=== PATIENT | male | born 1965 | race Caucasian/White ===

== ENCOUNTER 2019-02-11 03:05 | Observation (INO) | payer SELFPAY ==
[2019-02-11] VITALS (7 sets, daily range): BP systolic 125–178; BP diastolic 77–110; PULSE 57–77; RESP 18–20; Ht 175.3 cm; Wt 80.2 kg
[~2019-02-11] VITALS: Ht 175.3 cm; Wt 80.2 kg
[2019-02-11] MEDS ORDERED: ASPIRIN 325 MG TAB PO STA (03:28)
[2019-02-11] MEDS ORDERED: NITROGLYCERIN (SL) 0.4 MG TAB SL PRN ×2 (03:30→07:00)
--- NOTE | 2019-02-11 04:40 | ERD ---
ER Documentation Chief Complaint Chief Complaint precordial pain less than an hr ago HPI This is a 53-year-old male with a previous history of IV drug abuse and hepatitis C presents to the emergency room for evaluation of chest pain. The patient states that he was working on his motorcycle in the garage at approximately 1 AM and he developed some substernal chest pain which she describes as a pressure-like sensation. The patient states that he was sweating and became nauseous with no vomiting. He states the pain has improved however he came to the ER for evaluation. He currently denies any shortness of breath, headache, abdominal pain, diarrhea ROS All systems reviewed and are negative except as per history of present illness. Allergies Allergies: Coded Allergies: No Known Allergy (Unverified , 02/11/19) PMhx/Soc Medical and Surgical Hx: pt denies Surgical Hx Hx Miscellaneous Medical Probl: Yes (Hep C) Hx Substance Use: Yes (marijuana- denies other) Hx Tobacco Use: Yes Smoking Status: Current every day smoker Physical Exam Vitals Vital Signs Date Temp Pulse Resp B/P (MAP) Pulse Ox O2 O2 Flow FiO2 Time Delivery Rate 02/11/19 78 20 165/110 96 Room Air 03:25 (128) 02/11/19 97.2 93 18 161/94 95 03:07 (116) Physical Exam Const: No acute distress Head: Atraumatic Eyes: Normal Conjunctiva ENT: Normal External Ears, Nose and Mouth. Neck: Full range of motion. No meningismus. Resp: Clear to auscultation bilaterally Cardio: Regular rate and rhythm, no murmurs Abd: Soft, non tender, non distended. Normal bowel sounds Skin: No petechiae or rashes Back: No midline or flank tenderness Ext: No cyanosis, or edema Neur: Awake and alert Psych: Normal Mood and Affect Result Diagram: 02/11/19 0330 02/11/19 0330 Results 24 hrs Laboratory Tests Test 02/11/19 03:30 White Blood Count 8.4 10^3/ul Red Blood Count 4.33 10^6/ul Hemoglobin 12.9 g/dl Hematocrit 38.0 % Mean Corpuscular Volume 87.8 fl Mean Corpuscular Hemoglobin 29.8 pg Mean Corpuscular Hemoglobin Concent 33.9 g/dl Red Cell Distribution Width 13.2 % Platelet Count 242 10^3/UL Mean Platelet Volume 9.2 fl Immature Granulocytes % 0.100 % Neutrophils % 71.8 % Lymphocytes % 19.8 % Monocytes % 5.8 % Eosinophils % 2.0 % Basophils % 0.5 % Nucleated Red Blood Cells % 0.0 /100WBC Immature Granulocytes # 0.010 10^3/ul Neutrophils # 6.0 10^3/ul Lymphocytes # 1.7 10^3/ul Monocytes # 0.5 10^3/ul Eosinophils # 0.2 10^3/ul Basophils # 0.0 10^3/ul Nucleated Red Blood Cells # 0.0 10^3/ul Sodium Level 139 mmol/L Potassium Level 3.9 mmol/L Chloride Level 102 mmol/L Carbon Dioxide Level 29 mmol/L Anion Gap 8 Blood Urea Nitrogen 16 mg/dl Creatinine 0.87 mg/dl Est Glomerular Filtrat Rate mL/min > 60 mL/min Glucose Level 112 mg/dl Calcium Level 9.1 mg/dl Troponin I < 0.012 ng/ml Current Medications Medications Dose Sig/Mariangel Start Time Status Last (Trade) Ordered Route PRN Stop Time Admin Dose Reason Admin Aspirin 325 mg ONCE STAT 02/11/19 DC 02/11/19 (Aspirin) PO 03:28 03:38 02/11/19 03:29 1 tab Q5M UP TO 3 02/11/19 02/11/19 Nitroglycerin DOSES PRN 03:30 03:39 SL .CHEST (Nitroglyceri PAIN n (Sl Tab) 0.4 Mg) Procedures/MDM EKG: Rate/Rhythm: [Normal Sinus Rhythm] QRS, ST, T-waves: [No changes consistent w/ acute ischemia] Impression: [No evidence of ischemia or arrhythmia] Chest X-ray 1V Interpreted by me: Soft Tissue: No acute abnormalities Bones: No acute abnormalities Mediastinum/Cardiac Silhouette/Lungs: [No acute abnormalities] This 53-year-old male presents the ER for evaluation of substernal chest pain which was nonexertional. He did describe being diaphoretic and nauseous. His EKG is nonischemic at this time and his first troponin is negative. The patient was given aspirin and nitro and does state that his pain has improved. The patient has never had a stress test and given his presenting symptoms and history the patient will benefit from surgery troponins for ACS. The patient will be placed on the telemetry floor in observation under panel physician Departure Diagnosis: Primary Impression: Chest pain Condition: SOUMYA Gambino DO Feb 11, 2019 04:40
[2019-02-11] MEDS ORDERED: ONDANSETRON 4 MG INJ IV PRN ×3 (05:00→11:00)
[2019-02-11] MEDS ORDERED: ACETAMINOPHEN 325 MG TAB PO PRN ×2 (05:00→07:00)
--- NOTE | 2019-02-11 06:48 | HP ---
Date/Time of Note Date/Time of Note DATE: 02/11/19 TIME: 06:43 Assessment/Plan VTE Prophylaxis Pharmacological prophylaxis: heparin Lines/Catheters IV Catheter Type (from Nrsg): Saline Lock Assessment/Plan Assessment/Plan 53-year-old male who is an ex-IV drug user, history of hep C who presents with pressure-like chest pain, sweating with associated nausea and shoulder pain that started while he was working on his motorcycle yesterday afternoon. Need to rule out ACS PLAN -Telemetry monitoring -EKG without ST-T wave abnormalities -Troponin negative x1. Serial troponin -Supplemental oxygen, aspirin, beta-delphine. As needed nitro -Check A1c, fasting lipid and TSH -2D echo -Cardiology consult -utox screen. pt diaphoretic and sleepy Result Diagram: 02/11/19 0330 02/11/19 0330 Results 24hrs Laboratory Tests Test 02/11/19 03:30 White Blood Count 8.4 Red Blood Count 4.33 L Hemoglobin 12.9 L Hematocrit 38.0 L Mean Corpuscular Volume 87.8 Mean Corpuscular Hemoglobin 29.8 Mean Corpuscular Hemoglobin Concent 33.9 Red Cell Distribution Width 13.2 Platelet Count 242 Mean Platelet Volume 9.2 Immature Granulocytes % 0.100 Neutrophils % 71.8 Lymphocytes % 19.8 Monocytes % 5.8 Eosinophils % 2.0 Basophils % 0.5 Nucleated Red Blood Cells % 0.0 Immature Granulocytes # 0.010 Neutrophils # 6.0 Lymphocytes # 1.7 Monocytes # 0.5 Eosinophils # 0.2 Basophils # 0.0 Nucleated Red Blood Cells # 0.0 Sodium Level 139 Potassium Level 3.9 Chloride Level 102 Carbon Dioxide Level 29 Anion Gap 8 Blood Urea Nitrogen 16 Creatinine 0.87 Est Glomerular Filtrat Rate mL/min > 60 Glucose Level 112 Calcium Level 9.1 Troponin I < 0.012 HPI/ROS Admit Date/Time Admit Date/Time Feb 11, 2019 at 04:37 Hx of Present Illness Patient is a 53-year-old male who is an ex-IV drug user, history of hep C who presented to ER complaining of chest pain sweating. Chest pain started yesterday afternoon while he was working on his motorcycle. It is mainly localized in the mid chest, described as pressure-like with associated nausea and pain on his shoulders. Reported minimal shortness of breath. Patient sleepy, but arousable. He is diaphoretic. I asked if he has been doing drugs recently, but denied When he presented to the ER, blood pressure was 161/94. First troponin is negative and EKG without ST-T wave abnormalities. Chest x-ray without acute findings. PMH/Family/Social Past Medical History Medical History: other (See HPI) Medications Current Medications Ondansetron HCl (Zofran Inj) 4 mg ER BRIDGE PRN IV NAUSEA/VOMITING; Start 02/11/19 at 05:00; Stop 02/12/19 at 04:59 Acetaminophen (Tylenol Tab) 650 mg ER BRIDGE PRN PO .MILD PAIN 1-3 OR TEMP; Start 02/11/19 at 05:00; Stop 02/12/19 at 04:59 IV Flush (NS 3 ml) 3 ml PER PROTOCOL IV ; Start 02/11/19 at 07:00 Ondansetron HCl (Zofran Inj) 4 mg Q6H PRN IV NAUSEA/VOMITING; Start 02/11/19 at 07:00 Aspirin (Aspirin) 81 mg DAILY PO ; Start 02/11/19 at 09:00 Nitroglycerin (Nitroglycerin (Sl Tab) 0.4 Mg) 1 tab Q5M PRN SL .CHEST PAIN; Start 02/11/19 at 07:00 Acetaminophen (Tylenol Tab) 650 mg Q6H PRN PO .PAIN 1-3 OR TEMP; Start 02/11/19 at 07:00 Heparin Sodium (Porcine) (Heparin (5000 Units/1ml)) 5,000 unit Q12 SC ; Start 02/11/19 at 09:00 Albuterol/ Ipratropium (Duoneb) 3 ml Q2H RESP THERAPY PRN HHN SHORTNESS OF BREATH; Start 02/11/19 at 07:00 Coded Allergies: No Known Allergy (Unverified , 02/11/19) Past Surgical History Past Surgical Hx: other (See HPI) Family History Significant Family History: no pertinent family hx Social History Alcohol Use: other Smoking Status: Current every day smoker Drug Use: other (Aches IV drug user) Exam/Review of Systems Vital Signs Vitals Vital Signs Date Temp Pulse Resp B/P (MAP) Pulse Ox O2 O2 Flow FiO2 Time Delivery Rate 02/11/19 171/91 06:07 (117) 02/11/19 97.6 73 20 92 Room Air 05:52 Exam Constitutional: alert, oriented, well developed Head: normocephalic, atraumatic Eyes: EOMI, PERRL Respiratory: clear to auscultation, normal air movement Cardiovascular: regular rate and rhythm, nl pulses Gastrointestinal: soft, non-tender Extremities: normal pulses MARTHA BADILLO MD Feb 11, 2019 06:48
[2019-02-11] MEDS: METOPROLOL 25 MG TAB PO SCH ×2 (06:54→20:43)
[2019-02-11] MEDS ORDERED: NACL 0.9% 3 ML SYG IV SCH (07:00)
[2019-02-11] MEDS ORDERED: ALBUTEROL/IPRATROPIUM (NEB) 3 ML AMP HHN PRN (07:00)
[2019-02-11] MEDS: ASPIRIN 81 MG TAB PO SCH (08:30)
[2019-02-11] MEDS: HEPARIN 5,000 UNIT/1 ML VIAL SC SCH ×2 (08:34→20:46)
[2019-02-11] MEDS: METOCLOPRAMIDE 10 MG INJ IV PRN ×2 (11:36→20:48)
[2019-02-11] MEDS: NICOTINE (21 MG/24 HR) PATCH TRANSDERM SCH (11:36)
--- NOTE | 2019-02-11 12:50 | PN ---
Date/Time of Note Date/Time of Note DATE: 02/11/19 TIME: 12:48 Assessment/Plan VTE Prophylaxis Pharmacological prophylaxis: heparin Lines/Catheters IV Catheter Type (from Nrsg): Saline Lock Assessment/Plan Hospital Course 1. Chest pain Patient with no significant risk factors, currently no evidence of ACS Trend troponins follow-up on echo 2. Intractable nausea and vomiting likely secondary to tobacco withdrawal Reglan and Zofran Nicotine patch 3. History of IV drug use and hepatitis C No acute issues Follow-up on toxicology screen Prophylaxis: Heparin DC planning: Patient still with nausea vomiting, trend troponins, anticipate DC home in 1 to 2 days Result Diagram: 02/11/19 0330 02/11/19 033 Results 24hrs Laboratory Tests Test 02/11/19 03:30 02/11/19 11:19 White Blood Count 8.4 Red Blood Count 4.33 L Hemoglobin 12.9 L Hematocrit 38.0 L Mean Corpuscular Volume 87.8 Mean Corpuscular Hemoglobin 29.8 Mean Corpuscular Hemoglobin Concent 33.9 Red Cell Distribution Width 13.2 Platelet Count 242 Mean Platelet Volume 9.2 Immature Granulocytes % 0.100 Neutrophils % 71.8 Lymphocytes % 19.8 Monocytes % 5.8 Eosinophils % 2.0 Basophils % 0.5 Nucleated Red Blood Cells % 0.0 Immature Granulocytes # 0.010 Neutrophils # 6.0 Lymphocytes # 1.7 Monocytes # 0.5 Eosinophils # 0.2 Basophils # 0.0 Nucleated Red Blood Cells # 0.0 Sodium Level 139 Potassium Level 3.9 Chloride Level 102 Carbon Dioxide Level 29 Anion Gap 8 Blood Urea Nitrogen 16 Creatinine 0.87 Est Glomerular Filtrat Rate mL/min > 60 Glucose Level 112 Calcium Level 9.1 Troponin I < 0.012 < 0.012 Creatine Kinase 201 H Creatine Kinase Index 1.0 Creatinine Kinase MB (Mass) 2.00 Subjective 24 Hr Interval Summary Gastrointestinal: nausea Exam/Review of Systems Exam Vitals Vital Signs Date Temp Pulse Resp B/P (MAP) Pulse Ox O2 O2 Flow FiO2 Time Delivery Rate 02/11/19 98.0 57 20 138/93 94 Room Air 10:58 (108) Constitutional: alert, oriented Respiratory: clear to auscultation Cardiovascular: regular rate and rhythm Gastrointestinal: soft; No distended Musculoskeletal: nl extremities to inspection Results Results 24hrs Laboratory Tests Test 02/11/19 03:30 02/11/19 11:19 White Blood Count 8.4 Red Blood Count 4.33 L Hemoglobin 12.9 L Hematocrit 38.0 L Mean Corpuscular Volume 87.8 Mean Corpuscular Hemoglobin 29.8 Mean Corpuscular Hemoglobin Concent 33.9 Red Cell Distribution Width 13.2 Platelet Count 242 Mean Platelet Volume 9.2 Immature Granulocytes % 0.100 Neutrophils % 71.8 Lymphocytes % 19.8 Monocytes % 5.8 Eosinophils % 2.0 Basophils % 0.5 Nucleated Red Blood Cells % 0.0 Immature Granulocytes # 0.010 Neutrophils # 6.0 Lymphocytes # 1.7 Monocytes # 0.5 Eosinophils # 0.2 Basophils # 0.0 Nucleated Red Blood Cells # 0.0 Sodium Level 139 Potassium Level 3.9 Chloride Level 102 Carbon Dioxide Level 29 Anion Gap 8 Blood Urea Nitrogen 16 Creatinine 0.87 Est Glomerular Filtrat Rate mL/min > 60 Glucose Level 112 Calcium Level 9.1 Troponin I < 0.012 < 0.012 Creatine Kinase 201 H Creatine Kinase Index 1.0 Creatinine Kinase MB (Mass) 2.00 Medications Medication Current Medications Ondansetron HCl (Zofran Inj) 4 mg ER BRIDGE PRN IV NAUSEA/VOMITING; Start 02/11/19 at 05:00; Stop 02/12/19 at 04:59 Acetaminophen (Tylenol Tab) 650 mg ER BRIDGE PRN PO .MILD PAIN 1-3 OR TEMP; Start 02/11/19 at 05:00; Stop 02/12/19 at 04:59 IV Flush (NS 3 ml) 3 ml PER PROTOCOL IV ; Start 02/11/19 at 07:00 Aspirin (Aspirin) 81 mg DAILY PO Last administered on 02/11/19at 08:30; Admin Dose 81 MG; Start 02/11/19 at 09:00 Nitroglycerin (Nitroglycerin (Sl Tab) 0.4 Mg) 1 tab Q5M PRN SL .CHEST PAIN; Start 02/11/19 at 07:00 Acetaminophen (Tylenol Tab) 650 mg Q6H PRN PO .PAIN 1-3 OR TEMP; Start 02/11/19 at 07:00 Heparin Sodium (Porcine) (Heparin (5000 Units/1ml)) 5,000 unit Q12 SC Last administered on 02/11/19at 08:34; Admin Dose 5,000 UNIT; Start 02/11/19 at 09:00 Albuterol/ Ipratropium (Duoneb) 3 ml Q2H RESP THERAPY PRN HHN SHORTNESS OF BREATH; Start 02/11/19 at 07:00 Metoprolol Tartrate (Lopressor) 25 mg BID PO Last administered on 02/11/19 06:54; Admin Dose 25 MG; Start 02/11/19 at 07:01 Ondansetron HCl (Zofran Inj) 4 mg Q4H PRN IV NAUSEA/VOMITING; Start 02/11/19 at 11:00 Nicotine (Nicoderm 21 Mg/ 24hr) 1 patch DAILY TRANSDERM Last administered on 02/11/19at 11:36; Admin Dose 1 PATCH; Start 02/11/19 at 11:00 Metoclopramide HCl (Reglan) 10 mg Q6H PRN IV NAUSEA Last administered on 02/11/19at 11:36; Admin Dose 10 MG; Start 02/11/19 at 11:00 SCOTTIE VALENCIA Feb 11, 2019 12:50
[2019-02-11] MEDS ORDERED: LORAZEPAM 2 MG INJ IV PRN (18:30)
--- NOTE | 2019-02-11 18:39 | RADRPT ---
Echocardiogram Report Patient Name: MANISH SARAH ALFREDPatient ID: [id number] : 1965 (53y 4m)Study Date: 02/11/2019 10:27:10 AM Gender: Acecession #: [id number] Tech: ACE [facility]: [facility] Ref.Physician: MARTHA BADILLO Height(Cm): 175 BSA: 1.97Weight(Kg): 79.8 Quality: GoodOrder Physician: MARTHA BADILLO Account #: Procedures: Echocardiographic Report: Transthoracic echocardiogram with complete 2D, M-Mode, and Doppler examination. Indications: Chest Pain. Measurements: 2D/M Mode Doppler Measurement Value Normal Range Measurement Value Normal Range LVIDd 2D 5.4 [ 4.2 - 5.8 ] cm AV Peak Bob 1.2 [ 100.0 - 170.0 ] cm/se c LVIDs 2D 3.6 [ 2.5 - 4.0 ] cm AV Peak PG 6.0 [ 2.0 - 9.0 ] mmHg LVPWd 2D 1.1 [ 0.6 - 1.0 ] cm LVOT Peak Bob 0.8 [ 70.0 - 110.0 ] cm/sec IVSd 2D 1.2 [ 0.6 - 1.0 ] cm LVOT Peak PG 3.0 [ 2.0 - 6.0 ] mmHg AoR Diam 2D 3.7 [ 2.6 - 3.4 ] cm MV E Peak Bob 0.7 [ 60.0 - 130.0 ] cm/sec EF 2D 61.7 [ 52.0 - 72.0 ] percent MV A Peak Bob 0.8 [ 100.0 - 120.0 ] cm/se c LA Dimen 2D 4.4 [ 3.0 - 4.0 ] cm MV E/A 0.8 [ 0.8 - 1.5 ] ratio MV PHT 54.0 [ 20.0 - 100.0 ] msec MV Decel Time 185 [ 104 - 258 ] msec MV Decel Mcculloch 4 Lat E` Bob 0.1 [ 10.0 - 15.0 ] cm/sec Lateral E/E` 8.4 [ 1.0 - 2.0 ] ratio Med E` Bob 0.1 cm/sec MV E/A 0.8 [ 0.8 - 1.5 ] ratio MVA PHT 4.1 [ 2.0 - 4.0 ] cm2 TR Peak Bob 2.7 [ 100.0 - 280.0 ] cm/se c TR Peak PG 29.0 mmHg PV Peak Bob 1.0 [ 40.0 - 80.0 ] cm/sec PV Peak PG 4.0 mmHg RVSP 32.0 [ 10.0 - 36.0 ] mmHg RA Pressure 3.0 mmHg Findings: Left Ventricle: Normal left ventricular systolic function. Normal left ventricular cavity size. Mild concentric left ventricular hypertrophy. Ejection fraction is visually estimated at 55 %. Tissue Doppler/Mitral Doppler indices are consistent with impaired relaxation (Stage I diastolic dysfunction). Right Ventricle: Normal right ventricular size. Normal right ventricular systolic function. Left Atrium: There is mild enlargement of left atrium. Right Atrium: The right atrium is normal in size. Atrial Septum: Normal atrial septum. Mitral Valve: Normal appearance and function of the mitral valve with trace physiologic regurgitation. Aortic Valve: No significant aortic stenosis or insufficiency. Normal trileaflet aortic valve structure. Tricuspid Valve: Normal appearance of the tricuspid valve. The estimated Peak RVSP is 32 mmHg. There is mild tricuspid regurgitation. Pulmonic Valve: Normal pulmonic valve appearance. No evidence of pulmonic regurgitation. Pericardium: Normal pericardium with no significant pericardial effusion. Aorta: Sinus of valsalva is mildly dilated. Sinus of valsalva 3.70 cm. IVC: Normal size and normal respiratory collapse consistent with normal right atrial pressure. Pulmonary Artery: Normal pulmonary artery size. Conclusions: Normal left ventricular systolic function. Normal left ventricular cavity size. Mild concentric left ventricular hypertrophy. Ejection fraction is visually estimated at 55 %. Tissue Doppler/Mitral Doppler indices are consistent with impaired relaxation (Stage I diastolic dysfunction). Sinus of valsalva is mildly dilated. Sinus of valsalva 3.70 cm. Electronically Signed By: Greg Claire 2019-02-11 18:39:21 PDT
[2019-02-12 03:56] VITALS: BP_SYST 135; BP_SYST 158; BP_DIAS 85; BP_DIAS 98; PULSE 109; PULSE 70; RESP 18
[2019-02-12 07:22] VITALS: BP 160/90; PULSE 73; RESP 18
[2019-02-12 07:27] VITALS: BP_SYST 110; BP_SYST 160; BP_DIAS 68; BP_DIAS 90; PULSE 73; PULSE 97; RESP 18
[2019-02-12] MEDS: ASPIRIN 81 MG TAB PO SCH (08:12)
[2019-02-12] MEDS: METOPROLOL 25 MG TAB PO SCH (08:12)
[2019-02-12] MEDS: NICOTINE (21 MG/24 HR) PATCH TRANSDERM SCH (08:13)
[2019-02-12] MEDS: HEPARIN 5,000 UNIT/1 ML VIAL SC SCH (08:22)
[2019-02-12 11:35] VITALS: BP 157/89; PULSE 78; RESP 18
--- NOTE | 2019-02-12 18:25 | DS ---
Date/Time of Note Date/Time of Note DATE: 02/12/19 TIME: 18:22 Discharge Summary Admission/Discharge Info Admit Date/Time Feb 11, 2019 at 04:37 Discharge Date/Time Feb 12, 2019 at 12:28 Discharge Diagnosis Patient eloped 1. Chest pain Patient with no significant risk factors, currently no evidence of ACS Troponins are negative, echo with preserved EF 2. Intractable nausea and vomiting likely secondary to tobacco withdrawal Reglan and Zofran Nicotine patch 3. Polysubstance abuse with history of IV drug use and hepatitis C Toxicology is positive for opiates, amphetamines and marijuana Patient Condition: Fair Hospital Course Patient is a 53-year-old male with history of polysubstance abuse with history of IV drug use and hepatitis C he presented with intractable nausea and vomiting as well as chest pain. ACS was ruled out, toxicology was positive for opioids, amphetamines and marijuana. Patient eloped on the morning of 02/12/2019. Primary Care Provider Care Physician No Primary Time spent on discharge: > 30 minutes SCOTTIE VALENCIA Feb 12, 2019 18:25
== END 2019-02-12 12:28 | disposition left against medical advice (07) ==
LOC: E/R 03:05 → TEL 04:37 → CANBEDREQ 21:16
PROVIDERS: ADMIT Internal Medicine; ATTEND Internal Medicine
DX: R07.9 Chest pain, unspecified (principal); R11.2 Nausea with vomiting, unspecified; F19.10 Other psychoactive substance abuse, uncomplicated
CPT/HCPCS: 36415; 71045; 80048; 80053; 80061; 80307; 82550; 82553; 83036; 83735; 84443; 84484; 85025; 93005; 93306; 99285; G0378; J1644; J2405; J2765